=== PATIENT | male | born 1975 | race Caucasian/White ===

== ENCOUNTER 2017-02-12 23:14 | Emergency (ER) | payer MEDICAID ==
[~2017-02-12] VITALS: Ht 172.7 cm; Wt 92.8 kg
[2017-02-12 23:22] VITALS: BP 174/96; PULSE 98; RESP 14; TEMP 97.6; O2SAT 97
[2017-02-12 23:50] VITALS: BP 132/91; PULSE 87; RESP 20; O2SAT 97
[2017-02-13] MEDS ORDERED: CYMB30CA PO (00:05)
[2017-02-13 00:59] VITALS: BP 146/94; PULSE 79; RESP 16; O2SAT 96
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
[2017-02-13] MEDS ORDERED: ASPIRIN 325 MG TAB PO ONE (01:15)
[2017-02-13] MEDS ORDERED: SODIUM CHLORIDE 0.9% FLUSH 10 ML FLUSH IVF PRN (01:15)
[2017-02-13] MEDS: NITROGLYCERIN 0.4 MG SL 25 TABS/BTL SL SCH ×3 (01:25→01:48)
--- NOTE | 2017-02-13 01:35 | RADRPT ---
EXAM DATE/TIME: 02/13/2017 01:10 [facility] COMPARISON: No previous studies available for comparison. INDICATIONS : Chest pain. MEDICAL HISTORY : None. SURGICAL HISTORY : None. ENCOUNTER: Initial ACUITY: 1 day PAIN SCORE: 5/10 LOCATION: chest substernal. FINDINGS: PA and lateral views of the chest demonstrate the lungs to be symmetrically aerated without evidence of mass, infiltrate or effusion. The cardiomediastinal contours are unremarkable. Osseous structure s are intact. CONCLUSION: Normal examination. Riky Nguyen Jr., MD on February 13, 2017 at 1:33 Board Certified Radiologist. This report was verified electronically.
[2017-02-13 01:39] VITALS: BP_SYST 140; BP_SYST 146; BP_DIAS 90; O2SAT 97
[2017-02-13 01:41] LABS: AUTOMATED NEUTROPHIL # 10.8 TH/MM3 (1.8-7.7); BASOPHIL # 0.1 TH/MM3 (0-0.2); BASOPHIL % 0.5 % (0.0-2.0); EOSINOPHIL # 0.2 TH/MM3 (0-0.4); EOSINOPHIL % 1.7 % (0.0-4.0); HEMATOCRIT 48.1 % (39.0-51.0); LYMPH % 17.6 % (9.0-44.0); LYMPHOCYTE # 2.6 TH/MM3 (1.0-4.8); MEAN CELL VOLUME 93.8 FL (80.0-100.0); MEAN CORPUSCULAR HEMOGLOBIN 31.2 PG (27.0-34.0); MEAN CORPUSCULAR HGB CONC 33.2 % (32.0-36.0); MONO % 7.1 % (0.0-8.0); NEUT % 73.1 % (16.0-70.0); PLATELET COUNT 297 TH/MM3 (150-450); RED BLOOD COUNT 5.12 MIL/MM3 (4.50-5.90); RED CELL DISTRIBUTION WIDTH 12.6 % (11.6-17.2); WHITE BLOOD COUNT 14.7 TH/MM3 (4.0-11.0)
[2017-02-13 01:46] VITALS: BP 136/81; PULSE 84; RESP 16; O2SAT 96
[2017-02-13 01:53] LABS: CHLORIDE 100 MEQ/L (98-107); POTASSIUM 4.1 MEQ/L (3.5-5.1); SODIUM (NA) 137 MEQ/L (136-145)
[2017-02-13 01:54] LABS: HEMO FLAGS DIFF FINAL
[2017-02-13 01:56] LABS: ANION GAP 5 MEQ/L (5-15); BLOOD UREA NITROGEN 16 MG/DL (7-18); MAGNESIUM 1.8 MG/DL (1.5-2.5)
[2017-02-13 01:57] VITALS: BP 119/60; PULSE 84; RESP 16; O2SAT 96
[2017-02-13 01:59] LABS: GLOMERULAR FILTRATION RATE 61 ML/MIN (>89)
[2017-02-13 02:02] LABS: CREATINE KINASE 151 U/L (39-308)
[2017-02-13 02:15] LABS: CKMB 1.8 NG/ML (0.5-3.6)
[2017-02-13 03:21] VITALS: BP 121/60; PULSE 77; RESP 16; O2SAT 97
--- NOTE | 2017-02-13 14:21 | EKG ---
Date Performed: 02/12/2017 Time Performed: 23:29:53 PTAGE: 41 years EKG: Sinus rhythm POSSIBLE LEFT ATRIAL ENLARGEMENT BORDERLINE ECG NO PREVIOUS TRACING DOCTOR: Derick Hernandez Interpretating Date/Time 02/13/2017 14:20:34
== END 2017-02-13 03:23 | disposition home or self-care (01) ==
LOC: PHED 23:14
DX: R07.9 Chest pain, unspecified (principal); R06.02 Shortness of breath; Z79.899 Other long term (current) drug therapy
CPT/HCPCS: 71020; 80048; 82550; 82552; 83735; 84484; 85025; 93005